=== PATIENT | female | born 1955 | race Caucasian/White ===

== ENCOUNTER 2017-07-24 20:39 | Emergency (ER) | payer OTHER ==
[~2017-07-24] VITALS: Ht 162.6 cm; Wt 49.9 kg
[2017-07-24] MEDS ORDERED: ASPIR 8181 MG PO (20:49)
[2017-07-24] MEDS ORDERED: TOBRADEX EYE DRO5 ML OPHTHALMIC (21:30)
[2017-07-24] MEDS ORDERED: HYDROCORTISO28.35 G1 TOP (21:30)
[2017-07-24 21:40] VITALS: BP 146/90
== END 2017-07-24 21:40 | disposition home or self-care (01) ==
LOC: M.ERS 20:39
DX: H10.9 Unspecified conjunctivitis (principal); H01.005 Unspecified blepharitis left lower eyelid; F17.210 Nicotine dependence, cigarettes, uncomplicated

== ENCOUNTER 2019-08-26 22:36 | Emergency (ER) | payer OTHER ==
[~2019-08-26] VITALS: Ht 157.5 cm; Wt 49.0 kg
[~2019-08-26 22:36] MED LIST: ASPIR 8181 MG PO; HYDROCORTISO28.35 G1 TOP; TOBRADEX EYE DRO5 ML OPHTHALMIC
[2019-08-26 23:22] LABS: INFLUENZA A ANTIGEN Negative (Negative); INFLUENZA B ANTIGEN Negative (Negative)
[2019-08-27 01:40] LABS: URINE BILIRUBIN NEGATIVE (Negative); URINE BLOOD NEGATIVE (Negative); URINE CLARITY CLEAR; URINE COLOR YELLOW; URINE GLUCOSE-RANDOM NEGATIVE (Negative); URINE KETONES NEGATIVE (Negative); URINE LEUKOCYTES-REFLEX NEGATIVE (Negative); URINE NITRITE-REFLEX NEGATIVE (Negative); URINE PROTEIN NEGATIVE (Negative); URINE UROBILINOGEN 0.2 E.U./dl (0.2-1.0)
[2019-08-27] MEDS ORDERED: FLONASE 0.05%50 MCG NARES (02:06)
[2019-08-27] MEDS ORDERED: MOTION RELIEF25 MG PO (02:06)
[2019-08-27 02:42] VITALS: BP 175/91
--- NOTE | 2019-08-27 10:36 | EKG ---
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: [facility] : 1955 Requested By: Jaimie Ceja Order Number: [id number] MD: Carter Jenkins Measurements Intervals [place] Rate: 65 P: 44 TN: 139 QRS: 17 QRSD: 85 T: 38 QT: 399 QTc: 415 Interpretive Statements Sinus rhythm Left atrial enlargement No previous ECG available for comparison Electronically Signed On 08-27-2019 10:35:18 TRANSMISSION REBUILDER by Carter Jenkins [email or web address] <ELECTRONICALLY SIGNED> By: Carter Jenkins MD, [facility] 08/27/19 1035 [id number] Carter Jenkins MD, FACC /EPI
== END 2019-08-27 02:43 | disposition home or self-care (01) ==
LOC: M.ERS 22:36
PROVIDERS: Emergency Medicine
DX: H61.21 Impacted cerumen, right ear (principal); J06.9 Acute upper respiratory infection, unspecified; R42 Dizziness and giddiness; F17.210 Nicotine dependence, cigarettes, uncomplicated; Z88.0 Allergy status to penicillin; Z88.2 Allergy status to sulfonamides

== ENCOUNTER 2020-12-19 08:05 | Inpatient (IN) | payer OTHER ==
[~2020-12-19] VITALS: Ht 149.9 cm; Wt 49.9 kg
[~2020-12-19 08:05] MED LIST changes: +FLONASE 0.05%50 MCG NARES; +MOTION RELIEF25 MG PO
[2020-12-19 08:16] VITALS: BP 143/91
[2020-12-19] MEDS ORDERED: PROMETHAZINE-D473 M1 PO (08:18)
[2020-12-19] MEDS ORDERED: ZPAK PO (08:18)
[2020-12-19] MEDS ORDERED: PREDNISONE 20 M20 MG PO (08:18)
[2020-12-19 08:46] LABS: HEMATOCRIT 42.1 % (37.0-47.0); HEMOGLOBIN 14.6 gm/dL (12.0-15.0); MCHC 34.7 g/dL (28.0-37.0); MCV 101.1 fL (80.0-100.0); MPV 6.5 fl. (7.2-11.1); NUCLEATED RBCS 0 /100WBC; PLATELET COUNT* 748 thou/uL (150-400); RBC 4.16 mil/uL (4.20-5.00); RDW-CV 13.2 % (10.5-14.5); WBC 29.9 thou/uL (4.0-11.0)
[2020-12-19 08:55] LABS: CALCIUM 9.2 mg/dL (8.5-10.1); CREATININE 0.7 mg/dL (0.6-1.3)
[2020-12-19 09:06] LABS: ALBUMIN 1.5 g/dL (3.4-5.0); TOTAL BILIRUBIN 0.3 mg/dL (<0.1-1.0)
[2020-12-19 09:07] LABS: POTASSIUM 2.8 mmol/L (3.5-5.1)
[2020-12-19 09:30] LABS: ABSOLUTE LYMPHOCYTES 1.5 thou/uL (0.8-5.3); ABSOLUTE MONOCYTES 1.5 thou/uL (0.0-1.2); ABSOLUTE NEUTROPHILS 26.9 thou/uL (1.6-8.1)
[2020-12-19 09:31] LABS: PLATELET ESTIMATE INCREASED
[2020-12-19 12:41] VITALS: BP 106/61
--- NOTE | 2020-12-19 12:44 | NUR ---
PATIENT ADMISSION AND ASSESSMENT ARE COMPLETED IN THE ED. PATIENT IS BEING TRANSFERRED TO [facility] BY [facility] ED NURSE CALLED REPORT.
[2020-12-19 12:55] VITALS: BP 126/73
--- NOTE | 2020-12-19 14:44 | EKG ---
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 : 1955 Requested By: Sylvester Zarate Order Number: [id number] MD: Hitesh Rodriguez Measurements Intervals [place] Rate: 102 P: 44 [place]: 130 QRS: 5 QRSD: 87 T: 63 QT: 334 QTc: 436 Interpretive Statements Sinus rhythm with a single ventricular couplet Left atrial enlargement Minor nonspecific ST-T alterations Compared to ECG 08/26/2019 23:44:07 Ventricular premature complex(es) now present Heart rate has increased ST (T wave) deviation now present Electronically Signed On 12-19-2020 14:43:57 CDT by Hitesh Rodriguez [email or web address] <ELECTRONICALLY SIGNED> By: Hitesh Rodriguez MD, [facility] 12/19/20 1443 5 5 Hitesh Rodriguez MD, [facility] /EPI
--- NOTE | 2020-12-19 16:07 | NUR ---
PT ADMITTED TO ROOM 213 VIA CART FROM ED AT APPROXIMATELY 1255. PT ORIENTED TO ROOM AND CALL LIGHT. TRACING SR WITH OCCASIONAL PAC'S AND PVC'S ON THE VIBRATION ENGINEER. ON 2L NC SAT MID 90'S. IVF. PT UP WITH SBA TO BATHROOM. PULM CONSULT IN PLACE. PT TO HAVE US THORACENTESIS ON THE RIGHT TOMORROW 12/20. PT NPO AFTER MIDNNIGHT. POTASSIUM 2.8-BEING REPLACED PER ELECTROLYTE PROTOCOL. MEDS PER AUG. CALL LIGHT WITHIN REACH. HOURLY ROUNDING OBSERVED. BED IN LOW POSITION. WILL CONTINUE PLAN OF CARE.
[2020-12-19 16:34] VITALS: BP 102/57
[2020-12-19 20:00] VITALS: BP 127/61
[2020-12-20 00:49] VITALS: BP 146/72
[2020-12-20 04:41] VITALS: BP 150/73
[2020-12-20 05:51] LABS: ABSOLUTE BASOPHILS 0.2 thou/uL (0.0-0.2); ABSOLUTE LYMPHOCYTES 0.6 thou/uL (0.8-5.3); ABSOLUTE MONOCYTES 0.6 thou/uL (0.0-1.2); ABSOLUTE NEUTROPHILS 21.9 thou/uL (1.6-8.1); BASOPHILS 0.9 %; HEMATOCRIT 37.6 % (37.0-47.0); LYMPHOCYTES 2.6 %; MCHC 33.4 g/dL (28.0-37.0); MCV 101.7 fL (80.0-100.0); MONOCYTES 2.5 %; MPV 6.7 fl. (7.2-11.1); NUCLEATED RBCS 0 /100WBC; RBC 3.69 mil/uL (4.20-5.00); RDW-CV 13.4 % (10.5-14.5); WBC 23.3 thou/uL (4.0-11.0)
[2020-12-20 05:56] LABS: HEMOGLOBIN 12.5 gm/dL (12.0-15.0); PLATELET COUNT* 673 thou/uL (150-400)
[2020-12-20 06:08] LABS: ALBUMIN 1.2 g/dL (3.4-5.0); CALCIUM 8.9 mg/dL (8.5-10.1); CREATININE 0.4 mg/dL (0.6-1.3); MAGNESIUM 2.1 mg/dL (1.8-2.4); TOTAL BILIRUBIN 0.2 mg/dL (<0.1-1.0)
[2020-12-20 06:11] LABS: POTASSIUM 4.7 mmol/L (3.5-5.1)
[2020-12-20 06:15] LABS: APTT 29.9 Seconds (25.0-31.3); INR 1.2; PROTIME 12.4 Seconds (9.20-11.50)
[2020-12-20 08:00] VITALS: BP 122/74
--- NOTE | 2020-12-20 08:58 | CON ---
[address] [address] CONSULTATION Name: STEPHAN HEBERT Room: [address] IN .R.#: [id number] Admission: 12/19/20 Attend Phys: Eliza Farias MD Discharge: Date of : 59 Report #: [id number] THIS REPORT FOR: cc: SALAZAR - No family physician/PCP FAM - No family physician/PCP Peterson Valentino MD ~ DOC #: [id number] Peterson Valentino MD DATE OF CONSULTATION: 12/19/2020 CONSULT REQUESTED BY: Eliza Farias MD INDICATION FOR CONSULTATION: Pleural effusion. HISTORY OF PRESENT ILLNESS: This is a 64-year-old female. She is emaciated and appears to have severe malnutrition. Her albumin is only 1.5. She had been an active smoker until just a couple of weeks ago and has a history of highly consistent with COPD. The patient, however, has not been previously diagnosed. The patient is now here for right-sided chest pain with respiration and coughing and a persistent cough for at least 2 weeks' duration. It appears likely to me that her symptoms in fact have been present for a longer period of time. She has been bringing up yellow as well as white sputum. She has also had shortness of breath. On admission, she was saturating 90% on room air. She currently is saturating in the mid-90s on 2 liters of oxygen via nasal cannula. She does not have swelling of lower extremities. She does not have calf pain. She answered to the negative for 12 questions for review of systems, except as mentioned above. PAST MEDICAL HISTORY: Right hip replacement in 2019. There is a history highly consistent with COPD; however, the patient has not been previously diagnosed. SOCIAL HISTORY: Active smoker, more than a pack a day for several decades. Also a history of 2-3 alcoholic drinks a day, the specifics are not known to me at this time. No known history of illegal drug use. ALLERGIES: SHE SAYS SHE WAS TOLD WHEN SHE WAS YOUNG THAT SHE WAS ALLERGIC TO PENICILLIN; HOWEVER, DOES NOT KNOW THE REACTION; ALSO, REPORTED A HISTORY OF VISUAL CHANGES WITH SULFONAMIDE ANTIBIOTICS. IMMUNIZATIONS: The patient says that she has not been immunized for COVID. FAMILY HISTORY: There is no pertinent family history. PHYSICAL EXAMINATION: GENERAL: She is alert, awake and oriented, was coughing [place] [address] CONSULTATION Name: STEPHAN HEBERT Room: [address] IN [facility]#: [id number] Admission: 12/19/20 Attend Phys: Eliza Farias MD Discharge: Date of : 59 Report #: [id number] VITAL SIGNS: Has a pulse of 86 and a blood pressure of 102/57; is saturating at 93-94% on 2 liters of nasal cannula, previously was 90% on room air; respiratory rate is around 20; heart rate 86; afebrile with a temperature of 36.0. Body mass index of 21.8. HEENT: Head is normocephalic and atraumatic. Pupils are equal and reactive. There is no throat erythema. NECK: Does not show raised JVP, asymmetry, mass or lymph nodes. CHEST: Symmetrical expansion on inspection and palpation. On auscultation, however, breath sounds are bilaterally decreased; they are absent at the right lung base; expirations are prolonged; I do not hear any added sounds. HEART: Regular. There is no murmur. ABDOMEN: Soft and nontender. LOWER EXTREMITIES: Show no edema and no calf tenderness. SKIN: Dry and intact. NEUROLOGICAL: Moves all extremities bilaterally equally and spontaneously with no focal deficit identified. IMAGING STUDIES: The patient's chest x-ray and CT of chest are reviewed. In summary, there is a right-sided pleural effusion, suspicious of empyema, underlying mass is not ruled out. LABORATORY DATA: The patient's lab work is in [place] and is reviewed. ASSESSMENT/PLAN: 1. Pulmonary infiltrates with loculated right-sided pleural effusion/suspected empyema/rule out underlying mass. I do not see an underlying mass clearly; obviously, if one is present, then this could be masked by the pleural effusion; however, first glance, this is suspicious of an infectious process. The patient is currently on Levaquin. I will go ahead and add vancomycin. We will order more cultures and serologies as well. I recommend that we go ahead and attempt to fully drain out this pleural effusion. A thoracentesis is ordered for tomorrow. I will review with the Radiology Service. If it is not possible to fully drain it out with the thoracentesis, then I may recommend leaving a pigtail in place. Once this pleural effusion is drained out, I will plan to obtain another CT chest. Vancomycin and Levaquin should provide adequate coverage for now. Down the line, I am doubtful about PENICILLIN ALLERGY, if needed, then we can consider beta-lactam antibiotics, likely cephalosporins later. 2. Systemic inflammatory response syndrome/suspected sepsis. This is secondary to the above. Discussion is as above. 3. Chronic obstructive pulmonary disease exacerbation. We will continue with Solu-Medrol as well as nebulized bronchodilators as currently ordered. 4. Severe malnutrition. See discussion as above. Albumin is 1.5. 5. Evaluation for thromboembolic phenomena/cardiac evaluation[place] [address] CONSULTATION Name: STEPHAN HEBERT Room: [address] ADM IN M.R.#: [id number] Admission: 12/19/20 Attend Phys: Eliza Farias MD Discharge: Date of : 59 Report #: [id number] an echo. I would also recommend doing a D-dimer. The patient in fact is at high risk of having a silent deep venous thrombosis as well; and therefore, if the D-dimer is elevated, then I suggest obtaining venous Dopplers as well. There are no pulmonary emboli noted on the CTA chest. 6. Alcohol intake. Recommend watching for withdrawal. MCV is elevated. I would obtain a B12 and folate level, and we will also go ahead and treat her with thiamine and folate. 7. Deep venous thrombosis prophylaxis, we will order Lovenox. 8. Clostridium difficile prophylaxis, Lactinex. 9. Gastrointestinal prophylaxis, on Protonix. Thanks for this consultation. MD ROSA ELENA Gee/IVA <ELECTRONICALLY SIGNED> By: Peterson Valentino MD 12/20/20 0858 1626 [id number] alexsandra Hoyos
[2020-12-20 12:00] VITALS: BP 126/72
--- NOTE | 2020-12-20 12:46 | 2DMMODE ---
[place] [address] 2 D/M-MODE ECHOCARDIOGRAM Name: EMILEESTEPHANLYNDON OSORIO Room: [address] IN .Дмитрий.#: [id number] Admission: 12/19/20 Attend Phys: Eliza Farias, Discharge: Date of : 59 Date of Service: 12/20/20 1246 Report #: [id number] THIS REPORT FOR: cc: FAM - No family physician/PCP FAM - No family physician/PCP Hitesh Rodriguez MD [facility] ~ APPROVED REPORT Study performed: 12/20/2020 10:20:34 EXAM: Comprehensive 2D, Doppler, and color-flow Echocardiogram Patient Location: In-Patient Room #: [facility] Status: routine BSA: 1.42 HR: 84 bpm BP: 150/73 mmHg Rhythm: NSR Other Information Study Quality: Good Indications Dyspnea 2D Dimensions IVSd: 7.93 (7-11mm) LVOT Diam: 19.03 (18-24mm) LVDd: 43.95 mm PWd: 8.13 (7-11mm) Ascending Ao: 36.23 (22-36mm) LVDs: 25.28 (25-40mm) Aortic Root: 29.38 mm Volumes Left Atrial Volume (Systole) LA ESV Index: 39.80 mL/m2 Aortic Valve AoV Peak Grey.: 1.43 m/s AO Peak Gr.: 8.18 mmHg LVOT Max P.62 mmHg AO Mean Gr.: 4.36 mmHg LVOT Mean P.04 mmHg LVOT Max V: 1.29 m/s AO V2 VTI: 30.67 cm LVOT Mean V: 0.80 m/s PARUL (VTI): 2.73 cm2 LVOT V1 VTI: 29.43 [place] [address] 2 D/M-MODE ECHOCARDIOGRAM Name: STEPHAN HEBERT Room: [address]#: [id number] Admission: 12/19/20 Attend Phys: Eliza Farias, Discharge: Date of : 59 Date of Service: 12/20/20 1246 Report #: [id number] Mitral Valve E/A Ratio: 1.03 MV Decel. Time: 196.83 ms MV E Max Grey.: 1.03 m/s MV PHT: 57.08 ms MVA (PHT): 3.85 cm2 TDI E/Lateral E': 8.58 E/Medial E': 8.58 Medial E' Grey.: 0.12 m/s Lateral E' Grey.: 0.12 m/s Pulmonary Valve PV Peak Grey.: 0.94 m/s PV Peak Gr.: 3.52 mmHg Tricuspid Valve RAP Estimate: 5.00 mmHg TR Peak Gr.: 33.56 mmHg RVSP: 38.00 mmHg PA Pressure: 38.00 mmHg Left Ventricle The left ventricle is normal size. There is normal LV segmental wall motion. There is normal left ventricular wall thickness. Left ventricular systolic function is normal. The left ventricular ejection fraction is within the normal range. LVEF is 60-65%. The left ventricular diastolic function is normal. Right Ventricle The right ventricle is normal size. The right ventricular systolic function is normal. Atria The left atrium size is normal. The right atrium size is normal. Aortic Valve The aortic valve is normal in structure. Mild aortic regurgitation. There is no aortic valvular stenosis. Mitral Valve The mitral valve is normal in structure. Trace mitral regurgitation. No evidence of mitral valve stenosis. Tricuspid Valve The tricuspid valve is normal in structure. Mild tricuspid regurgitation. Mild [place] [address] 2 D/M-MODE ECHOCARDIOGRAM Name: STEPHAN HEBERT Room: [address] IN [facility]#: [id number] Admission: 12/19/20 Attend Phys: Eliza Farias, Discharge: Date of : 59 Date of Service: 12/20/20 1246 Report #: [id number] Pulmonic Valve The pulmonary valve is normal in structure. There is no pulmonic valvular regurgitation. Great Vessels The aortic root is normal in size. IVC is normal in size and collapses >50% with inspiration. Pericardium There is no pericardial effusion. <Conclusion> The left ventricle is normal size. There is normal left ventricular wall thickness. Left ventricular systolic function is normal. The left ventricular ejection fraction is within the normal range. LVEF is 60-65%. The left ventricular diastolic function is normal. The right ventricle is normal size. The left atrium size is normal. The right atrium size is normal. The aortic valve is normal in structure. Mild aortic regurgitation. There is no aortic valvular stenosis. The mitral valve is normal in structure. Trace mitral regurgitation. The tricuspid valve is normal in structure. Mild tricuspid regurgitation. Mild pulmonary hypertension. IVC is normal in size and collapses >50% with inspiration. There is no pericardial effusion. There is normal LV segmental wall motion. <ELECTRONICALLY SIGNED> By: Hitesh Rodriguez MD, FACC 12/20/20 1246 1246 1246 Hitesh Rodriguez MD, FACC /INF
--- NOTE | 2020-12-20 12:54 | NUR ---
cm s/w pt who indicated she lives at home with her partner. pt indicated she is independent w/cares and drives and is active. pt denies hx with hh or snf. pt is currently declining hh as she has stated, I had a hip replaced in may and didnt need hh. pt has no dmes. the poc for today is for pt to have thoracentesis.
--- NOTE | 2020-12-20 13:01 | NUR ---
Nutrition: Pt admitted with PNA. Seen for nsg risk 2 points. Pt stated she usually weighs 108#. Current wt is 108#. She is NPO after MN and pt is not pleased about it. She is very hungry. Meds, labs, hx noted. No wt changes. BMI WNL. Advance diet when clinically able. Low risk.
[2020-12-20 14:50] LABS: BF RBC 2784 /mm3; TOTAL CELL COUNT 5160 /mm3
[2020-12-20 14:58] LABS: TOTAL VOLUME 250 ml
[2020-12-20 15:02] LABS: CLARITY SLIGHTLY HAZY
[2020-12-20 15:35] LABS: BF LYMPHOCYTES 18 %; BF POLYS 82 %
[2020-12-20 15:41] LABS: SOURCE PLEURAL FLUID
--- NOTE | 2020-12-20 15:55 | NUR ---
Patient to CT by wheelchair, on O2. Radiology will bring her back to unit.
[2020-12-20 16:00] VITALS: BP 133/67
--- NOTE | 2020-12-20 20:05 | NUR ---
Report given to shift supervisor rn nurse. Patient resting in room. Antibiotic running through IV. Call light and all belongings within reach. Bed alarm on. Meds given per AUG.
[2020-12-20 20:33] VITALS: BP 109/61
[2020-12-21] VITALS (10 sets, daily range): BP systolic 110–149; BP diastolic 69–89
[2020-12-21 04:19] LABS: HEMATOCRIT 36.6 % (37.0-47.0); HEMOGLOBIN 12.5 gm/dL (12.0-15.0); MCH 34.8 pg (26.0-34.0); MCHC 34.2 g/dL (28.0-37.0); MCV 101.9 fL (80.0-100.0); MPV 6.8 fl. (7.2-11.1); RBC 3.6 mil/uL (4.20-5.00); RDW-CV 12.8 % (10.5-14.5); WBC 18.7 thou/uL (4.0-11.0)
[2020-12-21 04:35] LABS: ALBUMIN 1.1 g/dL (3.4-5.0); CALCIUM 8.4 mg/dL (8.5-10.1); CREATININE 0.5 mg/dL (0.6-1.3); MAGNESIUM 2.1 mg/dL (1.8-2.4); POTASSIUM 3.9 mmol/L (3.5-5.1); TOTAL BILIRUBIN 0.2 mg/dL (<0.1-1.0); TOTAL PROTEIN 5.5 g/dL (6.4-8.2)
--- NOTE | 2020-12-21 06:44 | NUR ---
RECIEVED REPORT AND ASSUMED CARE AT 1900. VSS. CARDIAC MONITORING IN PLACE. PT DENIES COMPLAINTS OF PAIN. DISCUSSED PLAN OF CARE, VERBALIZED UNDERSTANDING. NO ACUTE CHANGES ON THIS SHIFT. ROUNDING COMPLETED AND ALL NEEDS MET.
--- NOTE | 2020-12-21 15:36 | NUR ---
RADIOLOGY CONSULT. CHEST TUBES PLACED TODAY. PT MAY NEED TO POSSIBLY TRANSFER TO [facility] IF IT IS DEEMED THORACIC SX IS NEEDED.
[2020-12-21 16:07] LABS: BODY FLUID LDH 5140 IU/L (())
--- NOTE | 2020-12-21 18:50 | NUR ---
RECEIVED REPORT. ASSUMED CARE OF PT AROUND 0730. AM ASSESSMENT AND VITALS COMPELTED CHARTED. SUPERVISOR BEATER ROOM IN PLACE. MEDS PER EMAR. PT WENT DOWN TO IR THIS AFTERNOON AND HAD CHEST TUBE PLACED TO RIGHT POSTERIOR CHEST. OUTPUT AT 180 FOR THIS SHIFT, PURULENT AND YELLOW. PT DENIES NEED FOR MEDICATION FOR PAIN - STATES "I'M OK"; FAMILY AT BEDSIDE PART OF SHIFT. PT COMFORTABLE IN BED AT THIS TIME. FALL PRECAUTIONS IN PLACE. CALL LIGHT WITHIN REACH. HOURLY ROUNDING PERFORMED.
[2020-12-21 22:06] LABS: MYCOPLASMA PNEUMONIA IgG 478 U/mL (0-99); MYCOPLASMA PNEUMONIA IgM <770 U/mL (0-769)
[2020-12-22 07:55] LABS: HEMOGLOBIN 13.3 gm/dL (12.0-15.0); MCH 34.6 pg (26.0-34.0); MCHC 34.1 g/dL (28.0-37.0); MCV 101.4 fL (80.0-100.0); MPV 6.8 fl. (7.2-11.1); RBC 3.84 mil/uL (4.20-5.00); RDW-CV 13.5 % (10.5-14.5); WBC 15.1 thou/uL (4.0-11.0)
[2020-12-22 08:48] LABS: POTASSIUM 3.9 mmol/L (3.5-5.1)
[2020-12-22 08:49] LABS: ALBUMIN 1.2 g/dL (3.4-5.0); CALCIUM 8.1 mg/dL (8.5-10.1); CREATININE 0.5 mg/dL (0.6-1.3); MAGNESIUM 1.9 mg/dL (1.8-2.4); TOTAL BILIRUBIN 0.3 mg/dL (<0.1-1.0); TOTAL PROTEIN 5.3 g/dL (6.4-8.2)
[2020-12-22 09:17] VITALS: BP 131/77
[2020-12-22 12:00] VITALS: BP 133/73
--- NOTE | 2020-12-22 12:23 | NUR ---
Chest tube placed yesterday. Plan more procedures today. Pt does not need to transfer to [facility]. Anticipate dc in a few days.
[2020-12-22 16:00] VITALS: BP 116/65
[2020-12-22 20:00] VITALS: BP 114/65
[2020-12-23] VITALS: BP 137/76
[2020-12-23 04:00] VITALS: BP 136/73
[2020-12-23 05:43] LABS: HEMATOCRIT 43.3 % (37.0-47.0); MCH 35.6 pg (26.0-34.0); MCHC 34.5 g/dL (28.0-37.0); MCV 103.1 fL (80.0-100.0); MPV 7.4 fl. (7.2-11.1); RBC 4.2 mil/uL (4.20-5.00); RDW-CV 13.3 % (10.5-14.5); WBC 13.5 thou/uL (4.0-11.0)
[2020-12-23 06:17] LABS: ALBUMIN 1.2 g/dL (3.4-5.0); CALCIUM 8.1 mg/dL (8.5-10.1); CREATININE 0.5 mg/dL (0.6-1.3); POTASSIUM 3.3 mmol/L (3.5-5.1); TOTAL BILIRUBIN 0.3 mg/dL (<0.1-1.0); TOTAL PROTEIN 5.4 g/dL (6.4-8.2)
[2020-12-23 08:00] VITALS: BP 138/78
[2020-12-23 10:50] LABS: HEMATOCRIT 43.4 % (37.0-47.0); HEMOGLOBIN 14.8 gm/dL (12.0-15.0); MCH 35.4 pg (26.0-34.0); MCHC 34.2 g/dL (28.0-37.0); MCV 103.7 fL (80.0-100.0); MPV 7.5 fl. (7.2-11.1); NUCLEATED RBCS 0 /100WBC; PLATELET COUNT* 642 thou/uL (150-400); RBC 4.18 mil/uL (4.20-5.00); RDW-CV 13.5 % (10.5-14.5); WBC 13.7 thou/uL (4.0-11.0)
[2020-12-23 11:25] LABS: ABSOLUTE EOSINOPHILS 0.3 thou/uL (0.0-0.7); ABSOLUTE LYMPHOCYTES 1.2 thou/uL (0.8-5.3); ABSOLUTE MONOCYTES 0.7 thou/uL (0.0-1.2); ABSOLUTE NEUTROPHILS 11.5 thou/uL (1.6-8.1); PLATELET ESTIMATE ADEQUATE
--- NOTE | 2020-12-23 12:07 | PATH ---
[address] [address] PATHOLOGY RPT PROCEDURE Name: STEPHAN HEBERT Room: [address] IN [facility]#: [id number] Admission: 12/19/20 Date of : 59 Discharge: Report #: [id number] Path Case #: [id number] Note [facility] Accession Number: [id number] TESTS RESULT FLAG UNITS REF RANGE LAB Clinician Provided Cytology Information No. of containers..01 Other (Miscellaneous) Source: RIGHT PLEURAL DIAGNOSIS: RIGHT PLEURAL NEGATIVE FOR MALIGNANT CELLS. CELLULAR DEGENERATION IS PRESENT. COMMENT, ACUTE AND CHRONIC INFLAMMATORY CELLS ARE PRESENT. Signed out by: Enzo Hernadez MD, Pathologist NPI- [id number] Performed by: Tania Hua, Template Reproduction Technician ([facility]) Gross description: 01 40ML, CLEAR YELLOW, 1 TP 1 CB /LCS 12/22/2020 0401 Local FLAG LEGEND: L-Low Normal,H-High Normal,LL-Alert Low,HH-Alert High <-Panic Low,>-Panic High,A-Abnormal,AA-Critical Abnormal Performed at: [address] [place] [address] Enzo Hernadez MD, Specimen Comment: A courtesy copy of this report has been sent to [phone] Specimen Comment: Report sent to DR. LEI Specimen Comment: A duplicate report has been generated due to demographic updates. Performed at: [address], [place], [place] [id number] MD Enzo Hernadez MD Phone: [phone]
[2020-12-23 13:03] VITALS: BP 121/68
--- NOTE | 2020-12-23 14:54 | NUR ---
Chest tube in. Pending cultures. No weekend dc. ?HH, Pt unsure if she will need at dc. Following.
[2020-12-23 16:34] VITALS: BP 117/68
--- NOTE | 2020-12-23 16:53 | NUR ---
Injected tpa and pulmocort as ordered by Dr. Pimentel. Sheba, RN in at bedside to observe process. Instructed to turn stopcock to open in two hours (1840) and the rest is already set up. Patient tolerated procedure well. Will continue to monitor
[2020-12-23 17:08] LABS: CREATININE 0.7 mg/dL (0.6-1.3); POTASSIUM 3.7 mmol/L (3.5-5.1)
--- NOTE | 2020-12-23 17:30 | NUR ---
RECEIVED REPORT AROUND 07. ASSUMED CARE. VS AND ASSESSMENT CHARTED. IV INTACT. HEART MONITOR ATTACHED. MEDS GIVEN PER AUG. HOURLY ROUNDING PERFORMED. CT OF CHEST DONE THIS SHIFT. CHEST TUBE INTACT RIGHT SIDE. JACINTA REAL GAVE MEDS THROUGH CHEST TUBE. CHEST TUBE CLAMPED UNTIL 1839. PT UP STAND BY ASSIST. FAMILY VISITED THIS SHIFT. NO PAIN THIS SHIFT. CALL LIGHT WITH IN REACH. WILL CONTINUE TO MONITOR.
[2020-12-23 20:00] VITALS: BP 122/69
[2020-12-24] VITALS (7 sets, daily range): BP systolic 105–147; BP diastolic 53–71
[2020-12-24 07:10] LABS: CALCIUM 8.1 mg/dL (8.5-10.1); CREATININE 0.5 mg/dL (0.6-1.3); MAGNESIUM 2.1 mg/dL (1.8-2.4); POTASSIUM 3.6 mmol/L (3.5-5.1)
--- NOTE | 2020-12-24 17:30 | NUR ---
RECEIVED REPORT AROUND 0715. ASSUMED CARE. VS AND ASSESSMENT CHARTED. IV INTACT RIGHT AC AND RIGHT FOREARM. HEART MONITOR ATTACHED AT SR WITH OCCASIONAL PAC. PT LYING IN BED. MEDS GIVEN PER AUG. CHEST TUBE INTACT, RIGHT SIDE. HOURLY ROUNDING PERFORMED. NO PAIN THIS SHIFT. FAMILY VISITED THIS SHIFT. CALL LIGHT WITH IN REACH. WILL CONTINUE TO MONITOR.
[2020-12-25 04:29] VITALS: BP 128/70
[2020-12-25 06:40] LABS: ABSOLUTE EOSINOPHILS 0.1 thou/uL (0.0-0.7); ABSOLUTE LYMPHOCYTES 1.7 thou/uL (0.8-5.3); ABSOLUTE MONOCYTES 1.1 thou/uL (0.0-1.2); ABSOLUTE NEUTROPHILS 13.3 thou/uL (1.6-8.1); BASOPHILS 0.2 %; EOSINOPHILS 0.5 %; HEMATOCRIT 42.9 % (37.0-47.0); HEMOGLOBIN 14.9 gm/dL (12.0-15.0); LYMPHOCYTES 10.4 %; MCH 35.5 pg (26.0-34.0); MCHC 34.6 g/dL (28.0-37.0); MCV 102.5 fL (80.0-100.0); MPV 6.9 fl. (7.2-11.1); NUCLEATED RBCS 0 /100WBC; PLATELET COUNT* 656 thou/uL (150-400); POLYS 81.9 %; RBC 4.19 mil/uL (4.20-5.00); RDW-CV 13.6 % (10.5-14.5); WBC 16.2 thou/uL (4.0-11.0)
[2020-12-25 06:56] LABS: CALCIUM 8.3 mg/dL (8.5-10.1); CREATININE 0.5 mg/dL (0.6-1.3); PHOSPHORUS* 3.7 mg/dL (2.5-4.9); POTASSIUM 3.7 mmol/L (3.5-5.1)
[2020-12-25 07:04] LABS: CALCIUM 8.4 mg/dL (8.5-10.1); CREATININE 0.5 mg/dL (0.6-1.3); MAGNESIUM 2.1 mg/dL (1.8-2.4); POTASSIUM 3.9 mmol/L (3.5-5.1); TOTAL BILIRUBIN 0.3 mg/dL (<0.1-1.0); TOTAL PROTEIN 5.6 g/dL (6.4-8.2)
[2020-12-25 08:00] VITALS: BP 121/64
[2020-12-25 11:29] VITALS: BP 142/69
--- NOTE | 2020-12-25 11:32 | NUR ---
RECEIVED REPORT AROUND 0715. ASSUMED CARE. VS AND ASSESSMENT CHARTED. IV ITNACT LEFT AND RIGHT FOREARM. HEART MONITOR ATTACHED AT SR WITH PAC'S. CHEST TUBE RIGHT SIDE INTACT. NO PAIN THIS AM. MEDS GIVEN PER AUG. PT LYING IN BED. CALL LIGHT WITH IN REACH. WILL CONTINUE TO MONITOR.
[2020-12-25 15:43] VITALS: BP 100/54
--- NOTE | 2020-12-25 18:15 | NUR ---
NO NEW CHANGES. IV INTACT. HEART MONITOR ATTACHED. FAMILY VISITED THIS SHIFT. NEW CHEST TUBE CHAMBER THIS SHIFT. MEDS GIVEN PER AUG. HOURLY ROUNDING PERFORMED. 2L NC. NO PAIN. CALL LIGHT WITH IN REACH. WILL CONTINUE TO MONITOR.
[2020-12-25 19:30] VITALS: BP 125/74
--- NOTE | 2020-12-25 23:46 | NUR ---
ASSUMED CARE OF PT AT 1900. PT IS ALERT AND ORIENTED. VSS. PERRLA. NO COMPLAINTS OF PAIN. CHEST TUBE ON LEFT SIDE. SEROUS DRAINAGE IN ATRIUM. CHEST TUBE SET AT -20 CMH20. SOME TIDLING NOTED. LINE IS FREE OF BENDS OR OCCLUSIONS. PT IS IN SINUS RYTHM ON THE TELEMETRY. PT IS RESTING COMFORTABLY IN BED. RESPIRATIONS ARE EVEN AND NONLABORED. WILL CONTINUE TO MONITOR PT.
[2020-12-26 00:26] VITALS: BP 137/77
[2020-12-26 04:22] LABS: HEMOGLOBIN 14.2 gm/dL (12.0-15.0); MCH 34.3 pg (26.0-34.0); MCHC 33.7 g/dL (28.0-37.0); MCV 101.8 fL (80.0-100.0); MPV 6.9 fl. (7.2-11.1); RBC 4.13 mil/uL (4.20-5.00); RDW-CV 13.2 % (10.5-14.5); WBC 12.6 thou/uL (4.0-11.0)
[2020-12-26 04:32] LABS: CALCIUM 8.3 mg/dL (8.5-10.1); CREATININE 0.6 mg/dL (0.6-1.3); POTASSIUM 3.9 mmol/L (3.5-5.1)
[2020-12-26 04:53] VITALS: BP 146/68
[2020-12-26 08:50] VITALS: BP 124/65
[2020-12-26 12:00] VITALS: BP 110/57
--- NOTE | 2020-12-26 13:43 | NUR ---
Chest tube still in. Anticipate a few more days in the hospital. CM following for dc needs.
[2020-12-26 16:00] VITALS: BP 111/69
[2020-12-26 20:00] VITALS: BP 113/65
[2020-12-27] VITALS: BP 99/53
[2020-12-27 04:56] VITALS: BP 108/54
[2020-12-27 09:00] VITALS: BP 139/73
--- NOTE | 2020-12-27 11:32 | NUR ---
called up to floor by RN for order regarding removal of chest tube. CT this AM shows tube has worked its way out and is not in proper place anymore. Dr. Klaus Blackman (IR) today gave the ok to remove from our standpoint. Order received. Removed stitches and had patient slightly valsalva with tube removal. Dressed sterilly with vasoline guaze and foam tape. Patient did not have any distress in removal process. Dr. Enrique stated no follow up chest is necessary.
[2020-12-27 11:53] VITALS: BP 129/69
--- NOTE | 2020-12-27 13:46 | NUR ---
Chest tube came out, plans to keep it out. Monitor for another 48 hrs, then dc to home on oral abx. No needs anticipated.
[2020-12-27 17:18] VITALS: BP 125/59
[2020-12-27 20:00] VITALS: BP 110/70
[2020-12-28] VITALS: BP 115/59
[2020-12-28 04:08] LABS: HEMATOCRIT 38.2 % (37.0-47.0); HEMOGLOBIN 13.2 gm/dL (12.0-15.0); MCH 35.1 pg (26.0-34.0); MCHC 34.6 g/dL (28.0-37.0); MCV 101.5 fL (80.0-100.0); MPV 6.5 fl. (7.2-11.1); RBC 3.77 mil/uL (4.20-5.00); RDW-CV 13.7 % (10.5-14.5); WBC 9.9 thou/uL (4.0-11.0)
[2020-12-28 04:14] LABS: ALBUMIN 1.8 g/dL (3.4-5.0); CREATININE 0.5 mg/dL (0.6-1.3); MAGNESIUM 2.4 mg/dL (1.8-2.4); TOTAL BILIRUBIN 0.1 mg/dL (<0.1-1.0); TOTAL PROTEIN 5.5 g/dL (6.4-8.2)
--- NOTE | 2020-12-28 04:42 | NUR ---
PATIENT SLEPT WELL DURING THIS SHIFT. PT IS ON ROOM AIR AND UP AD GIANCARLO TO BATHROOM. PT WITH TWO SALINE LOCKS IN LT/RT FOREARMS. FREQUENTLY USED ITEMS AND CALL LIGHT WITHIN REACH. SIDERAILS UPX2. WILL CONTINUE TO MONITOR.
[2020-12-28 08:00] VITALS: BP 129/76
[2020-12-28 12:00] VITALS: BP 122/70
--- NOTE | 2020-12-28 14:32 | NUR ---
Anticipate dc to home tomorrow, no needs. Off o2.
[2020-12-28 16:00] VITALS: BP 114/60
--- NOTE | 2020-12-28 18:30 | NUR ---
RECEIVED REPORT. ASSUMED CARE OF PT AROUND 0730. AM ASSESSMENT AND VITALS COMPLETED CHARTED. M/S STATUS. MEDS PER EMAR. NO COMPLAINTS THIS SHIFT; FEELS MUCH BETTER. FRIEND VISITED THIS AFTERNOON. PT HOPING TO DC TOMORROW. UP AD GIANCARLO. LOW FALL RISK PRECAUTIONS IN PLACE. HOURLY ROUNDING PERFORMED. CALL LIGHT WITHIN REACH.
[2020-12-28 21:00] VITALS: BP 113/60
--- NOTE | 2020-12-29 06:47 | NUR ---
PATIENT SLEPT MOST OF THE NIGHT. IV REMAINS SALINE LOCKED. PATIENT HAD NO COMPLAINTS OF PAIN. PATIENT SHOULD DISCHARGE HOME TODAY. PATIENT IS BEING TRANSFERRED DOWN TO 108 DUE TO MED SURGE STATUS. WILL CONTINUE TO MONITOR.
--- NOTE | 2020-12-29 07:50 | NUR ---
REPORT RECEIVED FROM ANDRE WORKMAN. PT JUST ARRIVED FROM TELEMETRY FLOOR. PT MED SURG STATUS. IV REMAINS S/L. PT ON RA. CALL LIGHT WITHIN REACH. WILL CONTINUE TO MONITOR.
[2020-12-29 08:05] VITALS: BP 129/77
[2020-12-29] MEDS ORDERED: CEFDINIR300 MG PO (08:26)
[2020-12-29] MEDS ORDERED: PREDNISONE 10 M10 M1 PO (08:26)
[2020-12-29] MEDS ORDERED: IPRAT-ALBUT 0.5-3 ML INH (08:26)
[2020-12-29 11:06] VITALS: BP 113/60
--- NOTE | 2020-12-29 12:47 | NUR ---
[place] FAXED ORDER TO [facility], FOR NEBULIZER. [phone].
[2020-12-29 14:47] VITALS: BP 113/60
--- NOTE | 2020-12-29 14:51 | NUR ---
PT ALERT AND ORIENTED X 4. IV TAKEN OUT WITH CATHETER INTACT. PT STATES UNDERSTADING TO DISCHARGE INSTRUCTIONS. PT GIVEN WORK NOTE SIGNED BY DR. LEI. PRESCRIPTIONS SENT TO PHARMACY. PT TO FOLLOW UP. ENCOURAGED SMOKING CESSATION. STATES SHE HAS NOT SMOKED CIGARETTES SINCE ADMISSION. PT TO MONITOR CHEST TUBE SITE. INFORMED S/S OF INFECTION. DENIES PAIN AND SHORTNESS OF BREATH AT THIS TIME. NO COUGH NOTED. NO OTHER QUESTIONS AT THIS TIME. PT STEADILY AMBULATORY TO THE CAR.
== END 2020-12-29 15:13 | disposition home or self-care (01) | DRG 177 ==
LOC: M.ERS 08:05 → M.2W 09:23 → M.TBA-ER 09:23 → M.2W 13:01 → M.ORTHSURG 12-29 06:54
PROVIDERS: Family Medicine; Internal Medicine; Internal Medicine Critical Care Medicine; ADMIT Internal Medicine; ATTEND Internal Medicine
PROC: 0W993ZZ Drainage of Right Pleural Cavity, Percutaneous Approach (ICD-10-PCS; principal; 2020-12-20)
PROC: 0W9930Z Drainage of Right Pleural Cavity with Drainage Device, Percutaneous Approach (ICD-10-PCS; 2020-12-21)
DX: J15.6 Pneumonia due to other Gram-negative bacteria (principal); J96.01 Acute respiratory failure with hypoxia; J86.9 Pyothorax without fistula; R65.10 Systemic inflammatory response syndrome (SIRS) of non-infectious origin without acute organ dysfunction; J44.1 Chronic obstructive pulmonary disease with (acute) exacerbation; J91.8 Pleural effusion in other conditions classified elsewhere; J44.0 Chronic obstructive pulmonary disease with (acute) lower respiratory infection; F17.210 Nicotine dependence, cigarettes, uncomplicated; R63.4 Abnormal weight loss; Z20.822 Contact with and (suspected) exposure to COVID-19; Z88.0 Allergy status to penicillin; Z88.2 Allergy status to sulfonamides; Z68.22 Body mass index [BMI] 22.0-22.9, adult

== ENCOUNTER 2021-03-26 09:07 | Emergency (ER) | payer OTHER ==
[~2021-03-26] VITALS: Ht 149.9 cm; Wt 49.0 kg
[~2021-03-26 09:07] MED LIST changes: +CEFDINIR300 MG PO; +IPRAT-ALBUT 0.5-3 ML INH; +PREDNISONE 10 M10 M1 PO; +PREDNISONE 20 M20 MG PO; +PROMETHAZINE-D473 M1 PO; +ZPAK PO
[2021-03-26] MEDS ORDERED: HYDROCODON-ACE1 EAC7 PO (09:41)
[2021-03-26 09:48] VITALS: BP 180/70
== END 2021-03-26 09:49 | disposition home or self-care (01) ==
LOC: M.ERS 09:07
DX: S80.01XA Contusion of right knee, initial encounter (principal); F17.210 Nicotine dependence, cigarettes, uncomplicated; Z88.0 Allergy status to penicillin; Z88.2 Allergy status to sulfonamides; W31.89XA Contact with other specified machinery, initial encounter; Y93.89 Activity, other specified; Y92.89 Other specified places as the place of occurrence of the external cause; Y99.8 Other external cause status